=== PATIENT | male | born 1975 | race Caucasian/White ===

== ENCOUNTER 2016-06-25 15:23 | Emergency (ER) | payer OTHER ==
[2016-06-25 16:50] VITALS: BP 159/106
--- NOTE | 2016-06-25 17:32 | UC ---
Respiratory Complaint HPI - HPI Summary HPI Summary: Irritated, dry hacking cough starting about a week ago. Denies nasal congestion , fever, or difficulty breathing. No leg swelling, activity intolerance, or hx of DVT. - History of Current Complaint Chief Complaint: UCRespiratory Stated Complaint: COUGH Time Seen by Provider: 06/25/16 17:12 Hx Obtained From: Patient Onset/Duration: Gradual Onset, Lasting Days Timing: Constant Severity Initially: Mild Severity Currently: Mild Character: Cough: Nonproductive Aggravating Factors: Recumbent Position Alleviating Factors: Upright Position Associated Signs And Symptoms: Positive: Wheezing. Negative: Fever, Chills, Calf Pain, Calf Swelling, URI, Nasal Congestion - Allergies/Home Medications Allergies/Adverse Reactions: Allergies Allergy/AdvReac Type Severity Reaction Status Date / Time Ampicillin Allergy Severe Shortness Verified 06/25/16 16:49 of Breath Penicillins Allergy Severe Shortness Verified 06/25/16 16:49 of Breath Home Medications: Home Medications guaiFENesin LIQ* [Robitussin*] PRN 06/25/16 [History] PMH/Surg Hx/FS Hx/Imm Hx Endocrine History Of: Denies: Diabetes, Thyroid Disease Cardiovascular History Of: Reports: Hypertension - knows he Has high BP - Do PCP Denies: Cardiac Disorders Respiratory History Of: Denies: COPD, Asthma GI/ History Of: Denies: Ulcer - Surgical History Surgical History: Yes Surgery Procedure, Year, and Place: lazy eye repair as an infant - Family History Known Family History: Positive: Cardiac Disease - grandfather, Other - no hx of DVT in family - Social History Occupation: Employed Full-time Lives: With Family Alcohol Use: None Alcohol Amount: quit 2006 Substance Use Type: None Smoking Status (MU): Former Smoker Amount Used/How Often: quit 2004 Review of Systems Constitutional: Negative Skin: Negative Eyes: Negative ENT: Negative Respiratory: Cough Cardiovascular: Negative Gastrointestinal: Negative Genitourinary: Negative Motor: Negative Neurovascular: Negative Musculoskeletal: Negative Neurological: Negative Psychological: Negative All Other Systems Reviewed And Are Negative: Yes Physical Exam Triage Information Reviewed: Yes Appearance: Well-Appearing, No Pain Distress, Obese Vital Signs: Initial Vital Signs Temp 98.5 F 06/25/16 16:46 Pulse 103 06/25/16 16:46 Resp 20 06/25/16 16:46 BP 159/106 06/25/16 16:46 Pulse Ox 96 06/25/16 16:46 Vital Signs Reviewed: Yes Eye Exam: Normal Eyes: Positive: Conjunctiva Clear ENT Exam: Normal - . ENT: Positive: Normal ENT inspection, Hearing grossly normal, Pharynx normal, TMs normal Dental Exam: Normal Neck exam: Normal Respiratory: Positive: No respiratory distress, No accessory muscle use, Decreased breath sounds, Wheezing - at bases. Negative: Crackles, Rhonchi, Stridor Cardiovascular: Positive: Tachycardia - states normal restin heart rate is in the 90s Musculoskeletal Exam: Normal Neurological Exam: Normal Psychological Exam: Normal Skin Exam: Normal Diagnostic Evaluation - Laboratory O2 Sat by Pulse Oximetry: 96 Respiratory Course/Dx - Differential Dx/Diagnosis Provider Diagnoses: cough. bronchospasm Discharge - Discharge Plan Condition: Stable Disposition: HOME Prescriptions: Albuterol HFA INHALER* [Ventolin HFA Inhaler*] 1 - 2 puff INH Q4H PRN #1 mdi PRN Reason: wheeze, cough Patient Education Materials: Acute Cough (ED) Referrals: Cain Mercer DO [Primary Care Provider] - If Needed Additional Instructions: Call or return if you develop increasing fever, shortness of breath, chest pain , bloody sputum, or otherwise worsen. If you have not improved at all after several days, contact your primary care physician or return here. INHALED BRONCHODILATORS: You have received a prescription for an inhaled bronchodilator -- a medication which stimulates the airways in the lung to dilate. This improves the flow of air in asthma, bronchitis, and emphysema. These medicines have some similarity to adrenaline, and can cause similar side effects: shakiness, racing heart, and a sense of nervousness. These side effects can be reduced with the use of a spacer and usually decrease with time. Use 1-2 puffs up to every 4 hours as needed for wheezing or tightness in your chest. It may be helpful to use preventatively, such as before bedtime or before going outside into cold air. IF YOU FIND THAT YOU ARE CONSISTENTLY NEEDING THE INHALER MORE THAN 6 TIMES PER DAY, PLEASE CALL OR RETURN FOR FURTHER EVALUATION.
== END 2016-06-25 17:35 | disposition home or self-care (01) ==
LOC: UCEAST 15:23
DX: R05 Cough (principal); J98.01 Acute bronchospasm; Z88.0 Allergy status to penicillin; Z87.891 Personal history of nicotine dependence
CPT/HCPCS: 99212; G0463